=== PATIENT | male | born 1995 | race Caucasian/White ===

== ENCOUNTER 2017-08-18 20:30 | Emergency (ER) | payer BC ==
[2017-08-18 20:40] VITALS: BP 120/78
[2017-08-18] MEDS ORDERED: hydrOXYzine HCL TAB* 25 MG PO ONE (21:04)
--- NOTE | 2017-08-18 21:13 | UC ---
Skin Complaint HPI - HPI Summary HPI Summary: States he started noticing a rash on volar surface of both wrists and inner thighs 2-3 days ago which is very itchy. He had contact with hot metal and he thought he had a burn in his wrists but they started itching. As he scratched several areas of his body new lesions appeared. He applied a topical cream for poison abilio which relieved the itching but noticed it was extending to trunk and today to the back of his neck. Denies fever, fatigue, problems swallowing, SOB or wheezing. - History of Current Complaint Chief Complaint: UCRash Time Seen by Provider: 08/18/17 20:53 Stated Complaint: RASH Hx Obtained From: Patient Onset/Duration: Sudden Onset, Lasting Days Skin Exposure Onset/Duration: Days Ago Timing: Constant Onset Severity: Mild Current Severity: Moderate Pain Intensity: 3 Location: Diffuse Character: Pruritus Aggravating Factor(s): Nothing Alleviating Factor(s): OTC Meds Associated Signs & Symptoms: Positive: Negative Related History: Possible Reaction to: Environmental Exposure - metal - Allergy/Home Medications Allergies/Adverse Reactions: Allergies Allergy/AdvReac Type Severity Reaction Status Date / Time bee venom protein (honey bee) Allergy Hives Verified 08/18/17 20:40 Review of Systems Constitutional: Negative All Other Systems Reviewed And Are Negative: Yes PMH/Surg Hx/FS Hx/Imm Hx Previously Healthy: Yes - Surgical History Surgical History: None - Social History Alcohol Use: Occasionally Substance Use Type: None Smoking Status (MU): Heavy Every Day Tobacco Smoker Physical Exam Triage Information Reviewed: Yes Appearance: Well-Appearing, No Pain Distress, Well-Nourished Vital Signs: Initial Vital Signs Temp 98.0 F 08/18/17 20:37 Pulse 73 08/18/17 20:37 Resp 12 08/18/17 20:37 BP 120/78 08/18/17 20:37 Pulse Ox 100 08/18/17 20:37 Vital Signs Reviewed: Yes Eyes: Positive: Conjunctiva Clear ENT: Positive: Pharynx normal, TMs normal, Uvula midline Neck: Positive: Supple, Nontender, No Lymphadenopathy Respiratory: Positive: Chest non-tender, Lungs clear, Normal breath sounds, No respiratory distress Cardiovascular: Positive: RRR, No Murmur, Pulses Normal Abdomen Description: Positive: Nontender, Soft Bowel Sounds: Positive: Present Skin: Positive: rashes - papulo macular rash on volar surface of wrists with escoriation espinoza, 3 papules on dorsum of neck, papulo macular rash on inner thighs and torso. No discharge, no fluctuation, non tender. No rash on oral mucosa, palms or soles Course/Dx - Course Course Of Treatment: atarax 25mg po given at UC. Start prednisone tomorrow with breakfast, f/u PCP if rash is not responding to prednisone - Diagnoses Provider Diagnoses: Urticarial dermatitis Discharge - Sign-Out/Discharge Documenting (check all that apply): Discharge - Discharge Plan Condition: Stable Disposition: HOME Prescriptions: predniSONE TAB* [Deltasone TAB*] 40 mg PO DAILY 3 Days #6 tab Referrals: No Primary Care Phys,NOPCP [Primary Care Provider] - [facility] [place] [facility] [Outside] - Billing Disposition and Condition Condition: STABLE Disposition: HOME
[2017-08-18] MEDS ORDERED: predniSONE TAB* 20 MG PO ONE ×2 (21:14→21:19)
== END 2017-08-18 21:37 | disposition home or self-care (01) ==
LOC: UCEAST 20:30
DX: L50.8 Other urticaria (principal); F17.210 Nicotine dependence, cigarettes, uncomplicated
CPT/HCPCS: 99202; A9270-GY; G0463; J7512

== ENCOUNTER 2018-06-25 14:24 | Emergency (ER) | payer BC ==
[2018-06-25] MEDS ORDERED: Albuterol 2.5 MG/3 ML NEB.SOL* (0.083%) INH ONE (15:21)
--- NOTE | 2018-06-25 15:27 | ED ---
Respiratory - HPI Summary HPI Summary: persistent cough for the last 10 days, fever initially which has subsequently resolved. Last temperature was about 5 days ago. cough and wheezing has perisisted, with some shortness of breath associated - History of Current Complaint Chief Complaint: UCGeneralIllness Stated Complaint: COUGH Time Seen by Provider: 06/25/18 15:07 Hx Obtained From: Patient Onset/Duration: Lasting Days Timing: Constant Initial Severity: Moderate Current Severity: Moderate Pain Intensity: 7 Character: Wheezing, Dyspnea on Exertion Sputum Amount: Small Sputum Color: Yellow Aggravating Factor(s): Nothing Alleviating Factor(s): Nothing Associated Signs and Symptoms: SOB, Dyspnea - Allergy/Home Medications Allergies/Adverse Reactions: Allergies Allergy/AdvReac Type Severity Reaction Status Date / Time bee venom protein (honey bee) Allergy Hives Verified 06/25/18 14:53 PMH/Surg Hx/FS Hx/Imm Hx Previously Healthy: Yes Endocrine/Hematology History: Denies: Hx Diabetes, Hx Thyroid Disease Cardiovascular History: Denies: Hx Hypertension Respiratory History: Denies: Hx Asthma, Hx Chronic Obstructive Pulmonary Disease (COPD) GI History: Denies: Hx Ulcer - Surgical History Surgery Procedure, Year, and Place: denies Infectious Disease History: No Infectious Disease History: Denies: Hx Hepatitis, Hx Human Immunodeficiency Virus (HIV), Traveled Outside the [place] in Last 30 Days - Social History Alcohol Use: Weekly Substance Use Type: Reports: Marijuana Smoking Status (MU): Never Smoked Tobacco Review of Systems Constitutional: Negative Eyes: Negative ENT: Negative Cardiovascular: Negative Respiratory: Negative Gastrointestinal: Negative Genitourinary: Negative Musculoskeletal: Negative Skin: Negative Neurological: Negative All Other Systems Reviewed And Are Negative: Yes Physical Exam Triage Information Reviewed: Yes Vital Signs On Initial Exam: Initial Vitals Temp Pulse Resp BP Pulse Ox 36.9 C 99 18 123/78 99 06/25/18 14:49 06/25/18 14:49 06/25/18 14:49 06/25/18 14:49 06/25/18 14:49 Vital Signs Reviewed: Yes Appearance: Positive: Well-Appearing Skin: Positive: Warm Head/Face: Positive: Normal Head/Face Inspection Eyes: Positive: Normal ENT: Positive: Normal ENT inspection Neck: Positive: Supple Respiratory/Lung Sounds: Positive: Clear to Auscultation Cardiovascular: Positive: Normal Abdomen Description: Positive: Nontender Bowel Sounds: Positive: Present Musculoskeletal: Positive: Normal Neurological: Positive: Normal Diagnostics - Vital Signs Vital Signs Temp Pulse Resp BP Pulse Ox 06/25/18 14:49 36.9 C 99 18 123/78 99 - Laboratory Lab Statement: Any lab studies that have been ordered have been reviewed, and results considered in the medical decision making process. Disposition - Diagnoses Provider Diagnoses: Cough Discharge - Sign-Out/Discharge Documenting (check all that apply): Patient Departure All imaging exams completed and their final reports reviewed: Yes - Discharge Plan Condition: Fair Disposition: HOME Referrals: No Primary Care Phys,NOPCP [Primary Care Provider] - - Billing Disposition and Condition Condition: FAIR Disposition: Home
[2018-06-25 16:26] LABS: Influenza A Molecular NEGATIVE (Negative); Influenza B Molecular NEGATIVE (Negative)
[2018-06-25 16:56] VITALS: BP 124/78
== END 2018-06-25 16:53 | disposition home or self-care (01) ==
LOC: UCEAST 14:24
DX: R05 Cough (principal); R06.2 Wheezing; R06.02 Shortness of breath; Z91.030 Bee allergy status
CPT/HCPCS: 71046; 99212; G0463

== ENCOUNTER 2018-07-01 15:55 | Emergency (ER) | payer BC ==
[2018-07-01 16:55] LABS: Influenza A Molecular POSITIVE (Negative)
[2018-07-01] MEDS ORDERED: Ondansetron ODT TAB* 4 MG PO ONE (17:36)
[2018-07-01] MEDS ORDERED: Benzonatate CAP* 100 MG PO ONE (17:37)
[2018-07-01] MEDS ORDERED: Ibuprofen TAB* 600 MG PO ONE (17:37)
[2018-07-01] MEDS ORDERED: Oseltamivir CAP* 75 MG CAP PO ONE (17:37)
--- NOTE | 2018-07-01 17:43 | ED ---
Influenza-Like Illness - HPI Summary HPI Summary: Patient complains of respiratory symptoms starting a week and a half ago, was seen at urgent care was diagnosed with bronchitis, tested negative for flu, given Z-Jordan. Patient's stated symptoms resolved until he just had cough for the past 2 days, but then sudden onset fever, nausea or vomiting, body aches, cough, chills starting yesterday. Denies neck stiffness, CP, SOB, abdominal pain, change in urine, change in BM. Medical history is none. No antipyretics today. - History of Current Complaint Chief Complaint: EDFluSymptoms Time Seen by Provider: 07/01/18 17:24 Hx Obtained From: Patient Onset/Duration: Sudden Onset, Lasting Days Severity: Moderate Associated Signs & Symptoms: Fever, Myalgia, Cough, Headache, Vomiting - Allergy/Home Medications Allergies/Adverse Reactions: Allergies Allergy/AdvReac Type Severity Reaction Status Date / Time bee venom protein (honey bee) Allergy Hives Verified 07/01/18 16:40 PMH/Surg Hx/FS Hx/Imm Hx Endocrine/Hematology History: Denies: Hx Diabetes, Hx Thyroid Disease Cardiovascular History: Denies: Hx Hypertension Respiratory History: Denies: Hx Asthma, Hx Chronic Obstructive Pulmonary Disease (COPD) GI History: Denies: Hx Ulcer Sensory History: Denies: Hx Eye Prosthesis Opthamlomology History: Denies: Hx Legally Blind EENT History: Denies: Hx Deafness Neurological History: Denies: Hx Dementia Psychiatric History: Denies: Hx Autism - Surgical History Surgery Procedure, Year, and Place: denies Infectious Disease History: No Infectious Disease History: Denies: Hx Hepatitis, Hx Human Immunodeficiency Virus (HIV), Traveled Outside the [place] in Last 30 Days - Social History Alcohol Use: Weekly Substance Use Type: Reports: Marijuana Smoking Status (MU): Never Smoked Tobacco Review of Systems Positive: Fever, Chills Eyes: Negative Positive: Sore Throat Cardiovascular: Negative Positive: Cough Positive: Vomiting, Nausea Genitourinary: Negative Positive: Myalgia Skin: Negative Positive: Headache Psychological: Normal All Other Systems Reviewed And Are Negative: Yes Physical Exam Triage Information Reviewed: Yes Vital Signs On Initial Exam: Initial Vitals Temp Pulse Resp BP Pulse Ox 102 F 106 17 144/80 96 07/01/18 16:35 07/01/18 16:35 07/01/18 16:35 07/01/18 16:35 07/01/18 16:35 Vital Signs Reviewed: Yes Appearance: Positive: Well-Appearing Skin: Positive: Warm Head/Face: Positive: Normal Head/Face Inspection Eyes: Positive: Normal ENT: Positive: Pharyngeal erythema, TMs normal, Uvula midline. Negative: Tonsillar swelling, Tonsillar exudate, Trismus, Muffled voice, Hoarse voice Neck: Positive: Supple Respiratory/Lung Sounds: Positive: Clear to Auscultation Cardiovascular: Positive: Normal Abdomen Description: Positive: Nontender Musculoskeletal: Positive: Normal Neurological: Positive: Normal Psychiatric: Positive: Normal AVPU Assessment: Alert - [place] Coma Scale Best Eye Response: 4 - Spontaneous Best Motor Response: 6 - Obeys Commands Best Verbal Response: 5 - Oriented Coma Scale Total: 15 Diagnostics - Vital Signs Vital Signs Temp Pulse Resp BP Pulse Ox 07/01/18 16:35 102 F 106 17 144/80 96 - Laboratory Lab Results: Lab Results 07/01/18 Range/Units 16:51 Influenza A (Rapid) Positive A (Negative) Lab Statement: Any lab studies that have been ordered have been reviewed, and results considered in the medical decision making process. Flu Symptom Course/Dx - Course Course Of Treatment: Patient complains of respiratory symptoms starting a week and a half ago, was seen at urgent care was diagnosed with bronchitis, tested negative for flu, given Z-Jordan. Patient's stated symptoms resolved until he just had cough for the past 2 days, but then sudden onset fever, nausea or vomiting, body aches, cough, chills starting yesterday. Denies neck stiffness, CP, SOB, abdominal pain, change in urine, change in BM. Medical history is none. No antipyretics today. Physical exam unremarkable. Patient afebrile 102. Vital signs otherwise unremarkable. Positive for flu. Girlfriend positive for flu. Rx for Tamiflu, Zofran, Tessalon. Advised alternating Tylenol and ibuprofen for fever control and body aches. Drink plenty of fluids. - Diagnoses Provider Diagnoses: Flu Discharge - Sign-Out/Discharge Documenting (check all that apply): Patient Departure Patient Received Moderate/Deep Sedation with Procedure: No - Discharge Plan Condition: Stable Disposition: HOME Prescriptions: Benzonatate CAP* [Tessalon 100 MG CAP*] 200 mg PO TID 6 Days #40 cap Ondansetron ODT TAB* [Zofran 4 MG Odt TAB*] 4 mg PO Q8H PRN 4 Days #14 tab.odt PRN Reason: Nausea Oseltamivir CAP* [Tamiflu CAP*] 75 mg PO BID 5 Days #10 cap Patient Education Materials: Influenza (ED) Referrals: No Primary Care Phys,NOPCP [Primary Care Provider] - Additional Instructions: Take Tamiflu as directed. Take Zofran for nausea as directed. Drink plenty of fluids to maintain hydration. Rest. Alternate ibuprofen 600 mg with Tylenol 650 mg every 3 hours for control of fever and body aches. Follow-up with primary care. Return to the ED for any new or worsening symptoms. - Billing Disposition and Condition Condition: STABLE Disposition: Home
[2018-07-01 18:15] VITALS: BP 129/67
== END 2018-07-01 18:14 | disposition home or self-care (01) ==
LOC: ED 15:55
DX: J10.1 Influenza due to other identified influenza virus with other respiratory manifestations (principal); Z91.030 Bee allergy status
CPT/HCPCS: 99282; A9270-GY